=== PATIENT | female | born 1950 | race Caucasian/White ===

== ENCOUNTER 2020-11-03 07:34 | Day surgery (SDC) | payer MEDICARE, OTHER, SELFPAY ==
[2020-10-30 13:19] VITALS: BMI 34.0
--- NOTE | 2020-11-02 12:05 | HO.ANESPROP2 ---
HPI - Anesthesia Eval Consult details Narrative: 70yo F for Upper Endoscopy s/p cervical discectomy and fusion PMFSH Past Medical History Medical History (Updated 10/30/20 @ 12:45 by Jenn Sylvester) Back pain GERD (gastroesophageal reflux disease) History of Rowe's esophagus History of fibromyalgia Seasonal allergies Surgical History Surgical History History of bursectomy History of esophagogastroduodenoscopy (EGD) History of fusion of cervical spine History of fusion of lumbar spine History of repair of hiatal hernia History of total right hip replacement Hx of cervical discectomy Hx of colonoscopy Social History Social History Patient Tobacco Use Status: Never used Tobacco Are you DNR?: No Advance Directives: No Advance Directives Information Provided: No Advance Directives on File: No Meds Allergies Allergy/AdvReac Type Severity Reaction Status Date / Time codeine Allergy Dizziness, Verified 10/30/20 13:18 Nausea Penicillins Allergy Rash Verified 10/30/20 13:18 Sulfa (Sulfonamide Allergy Dizziness Verified 10/30/20 13:18 Antibiotics) wheat Allergy Gastrointestinal Verified 10/30/20 13:18 Upset jalapeno Allergy Anaphylaxis Uncoded 10/30/20 13:18 Home Medications Medication Instructions Recorded Confirmed Last Taken Type Lyrica PO BID 10/30/20 11/03/20 06:30 History citalopram 20 mg PO DAILY 10/30/20 10/30/20 11/03/20 06:30 History famotidine 40 mg PO BEDTIME 10/30/20 10/30/20 Unknown History hyoscyamine sulfate 0.125 mg PO TID PRN 10/30/20 10/30/20 Unknown History pantoprazole 40 mg PO BID 10/30/20 10/30/20 11/03/20 06:30 History tramadol 50 mg PO BID PRN 10/30/20 10/30/20 Unknown History trazodone 100 mg PO BEDTIME 10/30/20 10/30/20 Unknown History Exam Exam Date and Time: November 02, 2020 1205 Height,Weight and Vital Signs: Height 5 ft 4 in Weight 89.811 kg Assessment and Plan Assessment Anesthesia Assessment: Chart Reviewed
[2020-11-03 07:51] VITALS: BP 145/71; PULSE 76; RESP 16; TEMP 35.8; O2SAT 97
[2020-11-03] MEDS: Lactated Ringers 1,000 ML 100 ML IVCONT (08:18)
--- NOTE | 2020-11-03 08:46 | MHC.SHP ---
Pre-Procedural Eval Section A Date of Service: 11/03/20 The patient is an INPATIENT: No Changes since office visit: No Cold of Flu in the past 2 weeks, No New Medical Problems, No Changes in Medication and No Patient answered all questions The History & Physical has been completed within 30 days and I have reviewed it.: Yes Section B Chief Complaint: conroy's,reflux disease Allergies: Allergies Allergy/AdvReac Type Severity Reaction Status Date / Time codeine Allergy Dizziness, Verified 10/30/20 13:18 Nausea Penicillins Allergy Rash Verified 10/30/20 13:18 Sulfa (Sulfonamide Allergy Dizziness Verified 10/30/20 13:18 Antibiotics) wheat Allergy Gastrointestinal Verified 10/30/20 13:18 Upset jalapeno Allergy Anaphylaxis Uncoded 10/30/20 13:18 Plan I have reviewed the history and physical and performed a pertinent physical examination on my patient. No changes have occurred unless specified.
--- NOTE | 2020-11-03 09:03 | P.BOP_ITS ---
Brief Operative Note Date of Service: 11/03/20 Pre-op diagnosis: barretts Post-op diagnosis: same Procedure: egd Surgeon: Charli Greenberg Anesthesia: MAC Was an Felt Finishing Supervisor used for this Procedure?: No Estimated blood loss (mL): 2 Pathology: other (antral biopsies,egj biopsies) Condition: stable Disposition: PACU
[2020-11-03 09:04] VITALS: BP 133/69; PULSE 75; RESP 16; TEMP 36.6; O2SAT 94
--- NOTE | 2020-11-03 09:07 | HO.ANESPROP2 ---
[facility] Past Medical History Medical History (Updated 10/30/20 @ 12:45 by Jenn Sylvester) Back pain GERD (gastroesophageal reflux disease) History of Rowe's esophagus History of fibromyalgia Seasonal allergies Surgical History Surgical History History of bursectomy History of esophagogastroduodenoscopy (EGD) History of fusion of cervical spine History of fusion of lumbar spine History of repair of hiatal hernia History of total right hip replacement Hx of cervical discectomy Hx of colonoscopy Social History Social History Patient Tobacco Use Status: Never used Tobacco Are you DNR?: No Advance Directives: No Advance Directives Information Provided: No Advance Directives on File: No Meds Allergies Allergy/AdvReac Type Severity Reaction Status Date / Time codeine Allergy Dizziness, Verified 10/30/20 13:18 Nausea Penicillins Allergy Rash Verified 10/30/20 13:18 Sulfa (Sulfonamide Allergy Dizziness Verified 10/30/20 13:18 Antibiotics) wheat Allergy Gastrointestinal Verified 10/30/20 13:18 Upset jalapeno Allergy Anaphylaxis Uncoded 10/30/20 13:18 Active Medications: Current Medications Generic Name Dose Route Start Last Admin Trade Name Freq PRN Reason Stop Dose Admin Lactated Ringer's 1,000 mls @ 100 mls/hr 11/03/20 06:30 11/03/20 08:18 Lr IVCONT 100 mls/hr .Q10H TY Administration Home Medications Medication Instructions Recorded Confirmed Last Taken Type Lyrica PO BID 10/30/20 11/03/20 06:30 History citalopram 20 mg PO DAILY 10/30/20 10/30/20 11/03/20 06:30 History famotidine 40 mg PO BEDTIME 10/30/20 10/30/20 Unknown History hyoscyamine sulfate 0.125 mg PO TID PRN 10/30/20 10/30/20 Unknown History pantoprazole 40 mg PO BID 10/30/20 10/30/20 11/03/20 06:30 History tramadol 50 mg PO BID PRN 10/30/20 10/30/20 Unknown History trazodone 100 mg PO BEDTIME 10/30/20 10/30/20 Unknown History Exam Exam Date and Time: November 03, 2020 0907 Height,Weight and Vital Signs: Height 5 ft 4 in Weight 89.811 kg Last Vital Signs Temp 96.5 F L 11/03/20 07:51 Pulse 76 11/03/20 07:51 Resp 16 11/03/20 07:51 BP 145/71 H 11/03/20 07:51 Pulse Ox 97 11/03/20 07:51 Airway Mallampati Class: III TM Dist: >3cm Neck ROM: Full Heart: RRR Lungs: CTA
--- NOTE | 2020-11-03 09:14 | OP_ITS ---
SURGEON: Charli Greenberg MD INDICATIONS: Rowe's esophagus. PREOPERATIVE DIAGNOSIS: POSTOPERATIVE DIAGNOSIS: PROCEDURE PERFORMED: Upper endoscopy with biopsy. ESTIMATED BLOOD LOSS: COMPLICATIONS: ANESTHESIA: Monitored anesthesia care. ASSISTANTS: SPECIMENS: DESCRIPTION OF PROCEDURE: History and physical performed. The risks and benefits of the procedure were explained to the patient, and informed consent was obtained. The patient was placed in left lateral decubitus position. The Olympus video gastroscope was introduced into the esophagus, stomach, and duodenum. Examination was performed. The scope was removed. She tolerated the procedure well and she was taken to the recovery area in stable condition. FINDINGS: Esophagus: The esophagus was normal. The EG junction was slightly irregular. There was no esophagitis. Biopsies were obtained at the EG junction. There was a 2 to 3 cm hiatal hernia. STOMACH: The stomach showed no evidence of masses or ulcers. There was mild antral and body erythema consistent with gastritis. Biopsies were obtained from the antrum. DUODENUM: The bulb and second portion were normal. IMPRESSION: 1. Rowe's esophagus. 2. Hiatal hernia. 3. Mild gastritis. RECOMMENDATIONS: Follow up the biopsy results. MD CEDRICK Bishop/ASHLEY / [id number]
[2020-11-03 09:19] VITALS: BP 139/76; PULSE 66; RESP 18; O2SAT 99
== END 2020-11-03 09:51 | disposition home or self-care (01) ==
PROVIDERS: PCP Internal Medicine; Visit Provider Internal Medicine Gastroenterology
PROC: 0DJ08ZZ Inspection of Upper Intestinal Tract, Via Natural or Artificial Opening Endoscopic (ICD-10-PCS; CPT 43235; principal; 2020-11-03 08:50)
DX: K22.70 Barrett's esophagus without dysplasia (principal); K21.9 Gastro-esophageal reflux disease without esophagitis; K29.50 Unspecified chronic gastritis without bleeding; K44.9 Diaphragmatic hernia without obstruction or gangrene; J30.2 Other seasonal allergic rhinitis; Z96.641 Presence of right artificial hip joint; Z98.1 Arthrodesis status; Z79.899 Other long term (current) drug therapy; Z88.0 Allergy status to penicillin; Z88.2 Allergy status to sulfonamides
CPT/HCPCS: 43239; 88305; 88342

== ENCOUNTER 2022-10-14 10:09 | Outpatient (REF) | payer MEDICARE, OTHER, SELFPAY ==
--- NOTE | ~2022-10-14 | FL_ITS ---
EXAMINATION: XR GI SERIES CLINICAL INFORMATION: Gastroesophageal reflux disease COMPARISON: None available. TECHNIQUE: Single contrast upper GI was performed with Gastrografin FINDINGS: There is surgical hardware in the cervical spine. No aspiration, penetration or retention is seen with liquid barium. There is a small hiatal hernia. Esophageal motility is normal. No mass, stricture or evidence of esophagitis. No significant gastroesophageal reflux appreciated. FLUOROSCOPY TIME: 0.9 minutes DOSE AREA PRODUCT: 8 Gomez per centimeter squared. Total dose 35 mgy. 44 saved fluoroscopic images. FL/FL upper GI series IMPRESSION: Small hiatal hernia. No gastroesophageal reflux appreciated.
[2022-10-14] MEDS: Diatrizoate Meglumine, Sodium 120 ML SOLUTION PO (10:58)
== END 2022-10-14 10:10 | disposition home or self-care (01) ==
LOC: HO.XRAY 10:09
PROVIDERS: PCP Internal Medicine; Visit Provider Internal Medicine Gastroenterology
DX: R13.10 Dysphagia, unspecified (principal); K21.9 Gastro-esophageal reflux disease without esophagitis; K22.70 Barrett's esophagus without dysplasia
CPT/HCPCS: 74240

== ENCOUNTER 2022-12-02 08:23 | Outpatient (REF) | payer MEDICARE, OTHER, SELFPAY ==
--- NOTE | ~2022-12-02 | US_ITS ---
EXAMINATION: US ABDOMEN COMPLETE CLINICAL INFORMATION: Right upper quadrant pain. COMPARISON: None available. TECHNIQUE: Real-time imaging of the abdominal viscera. FINDINGS: PANCREAS: Normal. ABDOMINAL AORTA: The proximal, mid, and distal segments are normal in caliber. INFERIOR VENA CAVA: Visualized portions are normal. LIVER: The liver is normal in size. The liver contour is normal. There is diffuse increased liver echogenicity. No focal hepatic lesion. There is no intrahepatic biliary duct dilatation seen. GALLBLADDER: The gallbladder wall thickness is 0.2 cm. The gallbladder is physiologically distended without evidence of stones, sludge, polyps, wall thickening or pericholecystic fluid. COMMON BILE DUCT: Normal in caliber measuring 0.3 cm in diameter. RIGHT KIDNEY: Normal. No hydronephrosis. No renal calculi or focal parenchymal lesions. The kidney measures 12.1 cm in maximum dimension. LEFT KIDNEY: Normal. No hydronephrosis. No renal calculi or focal parenchymal lesions. The kidney measures 11.0 cm in maximum dimension. SPLEEN: Normal. The spleen measures 9.2 cm in maximum dimension. FREE FLUID: None. US/US abdomen complete IMPRESSION: 1. Diffuse liver echogenicity without any focal lesion. 2. The rest of the abdominal ultrasound is unremarkable.
== END 2022-12-02 08:24 | disposition home or self-care (01) ==
LOC: HO.US 08:23
PROVIDERS: PCP Internal Medicine; Visit Provider Internal Medicine Gastroenterology
DX: R10.11 Right upper quadrant pain (principal)
CPT/HCPCS: 76700

== ENCOUNTER 2023-02-05 10:18 | Outpatient (REF) | payer MEDICARE, OTHER, SELFPAY | END 2023-02-05 10:19 | disposition home or self-care (01) | LOC: HO.10HDL 10:18 | PROVIDERS: Visit Provider Internal Medicine Gastroenterology | DX: R19.8 Other specified symptoms and signs involving the digestive system and abdomen (principal) | CPT/HCPCS: 36415; 84443 ==

== ENCOUNTER 2023-02-07 12:24 | Outpatient (REF) | payer MEDICARE, OTHER, SELFPAY | END 2023-02-07 12:25 | disposition home or self-care (01) | LOC: HO.LNP 12:24 | PROVIDERS: Visit Provider Internal Medicine Gastroenterology | DX: R19.8 Other specified symptoms and signs involving the digestive system and abdomen (principal) | CPT/HCPCS: 87177; 87209; 87507; 89055 ==

== ENCOUNTER 2023-10-07 12:33 | Day surgery (SDC) | payer MEDICARE, OTHER, SELFPAY ==
[2023-10-07 12:37] VITALS: BMI 33.5
[2023-10-07 13:04] VITALS: BP 147/71; PULSE 75; RESP 16; TEMP 36.1; O2SAT 98
--- NOTE | 2023-10-07 13:18 | HO.ANESPROP2 ---
HPI - Anesthesia Eval Consult details Narrative: for EGD and colonoscopy [facility] Past Medical History Medical History History of fibromyalgia GERD (gastroesophageal reflux disease) Seasonal allergies Back pain History of Rowe's esophagus Family History Family history of problems with anesthesia: No Surgical History Surgical History History of bursectomy History of esophagogastroduodenoscopy (EGD) History of fusion of cervical spine History of fusion of lumbar spine History of repair of hiatal hernia History of total right hip replacement Hx of cervical discectomy Hx of colonoscopy History of Problems with Anesthesia: No Social History Social History Patient Tobacco Use Status: Never used Tobacco Meds Allergies Allergy/AdvReac Type Severity Reaction Status Date / Time codeine Allergy Dizziness, Verified 10/07/23 12:44 Nausea Penicillins Allergy Rash Verified 10/07/23 12:44 Sulfa (Sulfonamide Allergy Dizziness Verified 10/07/23 12:44 Antibiotics) wheat Allergy Gastrointestinal Verified 10/07/23 12:44 Upset jalapeno Allergy Anaphylaxis Uncoded 10/07/23 12:44 Home Medications ?Medication ?Instructions ?Recorded ?Confirmed ?Last Taken ?Type Lyrica PO BID 10/30/20 11/03/20 06:30 History citalopram 20 mg tablet 20 mg PO DAILY 10/30/20 10/07/23 10/06/23 History famotidine 40 mg tablet 40 mg PO BEDTIME 10/30/20 10/07/23 10/06/23 History hyoscyamine sulfate 0.125 mg 0.125 mg PO TID PRN Spasms 10/30/20 10/30/20 Unknown History sublingual tablet pantoprazole 40 mg tablet,delayed 40 mg PO BID 10/30/20 10/07/23 10/06/23 History release tramadol 50 mg tablet 50 mg PO BID PRN Pain 10/30/20 10/30/20 Unknown History trazodone 100 mg tablet 100 mg PO BEDTIME 10/30/20 10/07/23 10/06/23 History Exam Height,Weight and Vital Signs: Height 5 ft 4.5 in Weight 89.811 kg Last Vital Signs Temp 97.0 F 10/07/23 13:04 Pulse 75 10/07/23 13:04 Resp 16 10/07/23 13:04 BP 147/71 H 10/07/23 13:04 Pulse Ox 98 10/07/23 13:04 O2 Del Method Room Air 10/07/23 13:04 Airway Mallampati Class: II TM Dist: <=3cm Neck ROM: Full Loose/Missing/Broken Teeth: No Heart: ok Lungs: ok. Chronic cough due to Rowe's. Assessment and Plan Assessment Anesthesia Assessment: Anesthesia Plan Discussed and Chart Reviewed Final Anesthetic Review Family History of Problems with Anesthesia: No History of Problems with Anesthesia: No NPO: Yes ASA Class: III Final Preanesthetic Review: No Changes in Pt Med Stat, Meds/Allgs Chart Reviewed, Consent Obtained/Reviewed and Anes Risks/Benef Reviewed Patient Risk: Intermediate Procedure Risk: Intermediate Anesthetic Plan Anesthetic Plan: Agree w/ Assess. and Plan and TIVA Disposition: Standard PACU
[2023-10-07] MEDS: Lactated Ringers 1,000 ML 80 ML IVCONT (13:21)
--- NOTE | 2023-10-07 13:22 | P.HPSUR_ITS ---
Pre-Procedural Eval Section A - 24 Hr Update-Section A only Date of Service: 10/07/23 Section B - Complete if H&P > 30 days Chief Complaint: Rowe's esophagus without dysplasia Details of Present Illness: see H&P no changes Relevant Family History (Specify if Yes): No Relevant Social History: None Present Medications: see Short Stay Collaborative assessment Medical History: No relevant PMH History of Previous Operations: No relevant previous surgery Allergies: Allergies Allergy/AdvReac Type Severity Reaction Status Date / Time codeine Allergy Dizziness, Verified 10/07/23 12:44 Nausea Penicillins Allergy Rash Verified 10/07/23 12:44 Sulfa (Sulfonamide Allergy Dizziness Verified 10/07/23 12:44 Antibiotics) wheat Allergy Gastrointestinal Verified 10/07/23 12:44 Upset jalapeno Allergy Anaphylaxis Uncoded 10/07/23 12:44 Review of Systems Sugical H&P ROS: Negative: Constitution, Cardiovascular, Respiratory, Neurological, Psychiatric, Hem-Onc, Allergic/Immunologic, Gastrointestinal, Genitourinary, Musculoskeletal, Integumentary, Endocrine and Eyes/Ears/Nose/Throat Exam Surgical H&P Exam: Normal: HEENT, Normal: Heart, Normal: Lungs, Normal: Extr emities, Normal: Abdomen, Normal: Skin and Normal: Neurological Plan Diagnosis/Plan: Unchanged I have reviewed the history and physical and performed a pertinent physical examination on my patient. No changes have occurred unless specified. Time Spent With Patient Time: Total time managing care of this patient today ____ minutes.
[2023-10-07 14:28] VITALS: BP 112/53; PULSE 62; RESP 18; TEMP 36.1; O2SAT 100
[2023-10-07 14:43] VITALS: BP 107/62; PULSE 61; RESP 18; TEMP 36.1; O2SAT 100
--- NOTE | 2023-10-07 15:41 | OP_ITS ---
DATE OF SERVICE: 10/07/2023 SURGEON: Charli Greenberg MD INDICATIONS: 1. Rowe esophagus. 2. Change in bowel habits. PREOPERATIVE DIAGNOSIS: POSTOPERATIVE DIAGNOSIS: PROCEDURE PERFORMED: Upper endoscopy with biopsy, colonoscopy to the terminal ileum with biopsy and snare polypectomy. ESTIMATED BLOOD LOSS: COMPLICATIONS: ANESTHESIA: Monitored anesthesia care. ASSISTANTS: SPECIMENS: DESCRIPTION OF PROCEDURE: A history and physical was performed. The risks and benefits of the procedure were explained to the patient and informed consent was obtained. The patient was placed in the left lateral decubitus position. The Olympus video gastroscope was introduced into the esophagus, stomach, and duodenum. Examination was performed and the scope was removed. She was repositioned for colonoscopy. A digital rectal exam was performed and was found to be normal. The Olympus pediatric video colonoscope was introduced into the rectum and advanced to the cecum. The cecum was identified by transillumination, palpation, and identification of ileocecal valve. Examination was performed and the scope was removed. She tolerated the procedure well and was returned to the recovery area in stable condition. FINDINGS: Upper endoscopy, esophagus: The esophagus was normal. No stricture was identified. The EG junction was located at approximately 35 cm and there were no raised lesions or ulcerated areas. Biopsies were obtained from the EG junction. There was a 3 cm hiatal hernia. Stomach: The stomach showed no evidence of masses, ulcers, or polyps. Duodenum: The bulb and 2nd portion were normal. Colonoscopy: The terminal ileum was examined and appeared normal. The visualized colonic mucosa was normal. There was some stool coating the mucosa, which was mostly liquid. It was washed and suctioned. There was mild sigmoid diverticulosis. Retroflexed examination showed moderate-sized internal hemorrhoids. A small polyp was located at 35 cm and removed with a cold snare. The polyp measured approximately 6 mm. The polyp was recovered via suction. A biopsy forceps was used to obtain random biopsies from the sigmoid to rule out microscopic or collagenous colitis. The mucosa did not show any endoscopic signs of colitis. IMPRESSION: 1. Rowe esophagus. 2. Hiatal hernia. 3. Colon polyp. RECOMMENDATION: Follow up the biopsy results. MD CEDRICK Bishop/ASHLEY / [id number]
== END 2023-10-07 15:33 | disposition home or self-care (01) ==
PROVIDERS: PCP Family Medicine; Visit Provider Internal Medicine Gastroenterology
PROC: (CPT 45380; principal; 2023-10-07 14:10)
DX: R19.4 Change in bowel habit (principal); K57.30 Diverticulosis of large intestine without perforation or abscess without bleeding; D12.6 Benign neoplasm of colon, unspecified; K22.70 Barrett's esophagus without dysplasia; K44.9 Diaphragmatic hernia without obstruction or gangrene; Z88.0 Allergy status to penicillin; Z88.2 Allergy status to sulfonamides; Z88.5 Allergy status to narcotic agent
CPT/HCPCS: 45380; 43239; 88305; 88313; J2704; J3010

== ENCOUNTER 2024-01-09 10:26 | Outpatient (REF) | payer MEDICARE, OTHER, SELFPAY | END 2024-01-09 10:27 | disposition home or self-care (01) | LOC: HO.HOSX 10:26 | PROVIDERS: PCP Family Medicine; Visit Provider Physician Assistant | DX: Z13.89 Encounter for screening for other disorder (principal) | CPT/HCPCS: 99202 ==

== ENCOUNTER 2024-01-09 10:26 | Outpatient (AMB) | payer MEDICARE, OTHER, SELFPAY ==
--- NOTE | 2024-01-09 10:44 | HO.SPINEOV ---
Intake Visit Reasons: low back pain Intake Note: Ms. Dumas is here today c/o low back pain. Clerk Travel Reservations Required: No Allergies codeine Allergy (Verified 01/09/24 10:49) Dizziness, Nausea Penicillins Allergy (Verified 01/09/24 10:49) Rash Sulfa (Sulfonamide Antibiotics) Allergy (Verified 01/09/24 10:49) Dizziness wheat Allergy (Verified 01/09/24 10:49) Gastrointestinal Upset jalapeno Allergy (Uncoded 10/07/23 12:44) Anaphylaxis Assessment & Plan Assessment & Plan (1) Compression fracture of L1 lumbar vertebra: Code(s): S32.010A - Wedge compression fracture of first lumbar vertebra, initial encounter for closed fracture Category: Medical (2) Failed back syndrome: Code(s): M96.1 - Postlaminectomy syndrome, not elsewhere classified Category: Medical Plan Mrs Dumas is a very nice 73-year-old female who comes in today for 2nd opinion about her lumbar spine. She has 2 issues to address today. The 1st is that she had an L4-5 posterior lumbar interbody fusion done by Dr. Luis morris in 2020 for what sounds like degenerative disc disease and low back pain. Unfortunately after the surgery she had no relief from the symptoms. She saw him in follow-up numerous times. X-rays, CT scans were done and was told that everything was okay from the standpoint of the surgery. It sounds like there was limited input from his office as to what to do next. She did undergo a series of injections, client care consultant and physical therapy but again nothing seemed to help. She is here today for an evaluation her postsurgical status from the lumbar fusion. A secondary issue, is that she has a recent fall just about 2 weeks ago where she tripped over a cord in fell. She had an MRI pending, and a few days later underwent that MRI and it showed an L1 fracture. She has not developed any acute lower extremity symptoms are cauda equina symptoms related to this. The pain that she initially felt when she fell seems to be slightly better. She bought herself a brace and has been using it to get around. She has been taking tramadol and Tylenol to help with the pain. PMH: History of fibromyalgia, Rowe's esophagitis, chronic cough, L4-5 posterior lumbar interbody fusion, anterior cervical fusion C3-4 and C6-7, right hip replacement. Social hx: She does not smoke, drink use any recreational drugs Medications: Trazodone, Lyrica, pantoprazole, citalopram, ropinirole, semaglutide, tramadol Allergies: Please see the [facility] list Physical exam: She is awake alert oriented no acute distress, she is slow to stand up she has wearing an LSO brace. She has some limitations with flexion of her right hip secondary to hip replacement but no focal weakness. Reflexes are normal. Imaging review: She has a lumbar MRI done at [place] in December 2023 showing postsurgical changes at L4-5. There is some mild degenerative disc disease above. There suggests that there may be a synovial cyst on the left but it is not causing any significant compression of the nerves. Other than that there are some other mild to moderate degenerative changes in her lumbar spine but nothing significant. There is hyperintensity seen in the bone of L1 with some concavity of the endplate suggesting she has a compression fracture that is acute. There is no retropulsion into the canal. Impression: 73-year-old female who underwent a posterior lumbar interbody fusion at [facility] and sounds like she has a failed back syndrome. It is well known that lumbar fusion for degenerative disc disease has about a 60-70% success rate with lumbar fusion and unfortunately I think the patient is falling into that 30-40% of people who the surgery does not help. I do not see anything wrong with this surgical site on the most recent MRI. I went back and looked at a CT scan that she had done at [facility] a few years ago and it looks like there is some degree of posterolateral fusion taking place. At this point I do not see anything to indicate that there is a problem with the surgery itself. I am going to send her for standing flexion-extension x-rays to rule out any occult instability around the surgical site. I agree with Dr. Smith that there is likely nothing to do further from a surgical standpoint for her chronic back pain. The rest of her MRI does not show anything profound that was suggest she needs an operation at another disk either. With regard to the acute issue with the L1 fracture. I suspect it is a compression fracture but would like to evaluate with a standing flexion-extension x-rays to rule out that she does not have a burst fracture, or some degree of instability there. I will call her if I see something on this x-ray that I do not like or the suggests that she needs to have a more extensive workup with a CT. If it does appear to be a compression fracture, typically these will heal on their own with time. If the pain persists we could consider a kyphoplasty. Thank you for allowing us to care for your patient. The total time spent with this visit with this patient was 45 minutes reviewing history, physical exam, lumbar imaging review, and implementation of treatment plan or further diagnostic testing Hari Del Rio MD,PhD [facility] Orders: Orders XR lumbar spine 4V min Today S32.010A - Wedge compression fracture of first lumbar vertebra, initial encounter for closed fracture Coding Level of Care Code New Pt Level 4 (04316) Diagnoses Compression fracture of L1 lumbar vertebra S32.010A Failed back syndrome M96.1
== END 2024-01-09 11:40 | disposition home or self-care (01) ==
PROVIDERS: PCP Family Medicine; Visit Provider Physician Assistant
DX: S32.010A Wedge compression fracture of first lumbar vertebra, initial encounter for closed fracture (principal); M96.1 Postlaminectomy syndrome, not elsewhere classified
CPT/HCPCS: 99204

== ENCOUNTER 2024-01-09 11:55 | Outpatient (REF) | payer MEDICARE, OTHER, SELFPAY ==
--- NOTE | ~2024-01-09 | XR_ITS ---
EXAMINATION: XR LUMBOSACRAL SPINE CLINICAL INFORMATION: Wedge compression fracture first lumbar vertebra. COMPARISON: CT lumbar spine 10/17/2021. TECHNIQUE: 3 views of the lumbosacral spine. FINDINGS: Levoscoliosis of the lumbar spine. Right total hip prosthesis minimally imaged. Posterior instrumented fusion with bilateral rods and pedicular screws as well as disc device at L4-L5. Hardware appears intact. Multilevel lumbar spondylosis with loss of disc space height at L3-L4 and L5-S1 Grade 1 anterolisthesis of L4 on L5. Minimal grade 1 anterolisthesis of L5 on S1. XR/XR lumbar spine 2-3V IMPRESSION: 1. Posterior instrumented fusion at L4-L5. Hardware appears intact. 2. Multilevel lumbar spondylosis with loss of disc space height at L3-L4 and L5-S1. Electronically signed by: Sheree Martinez MD 01/14/2024 10:02 AM EDT
--- NOTE | ~2024-01-09 | XR_ITS ---
EXAMINATION: XR SHOULDER, LEFT CLINICAL INFORMATION: Pain. COMPARISON: None available. TECHNIQUE: 3 views of the left shoulder. FINDINGS: Osteoarthritic changes in the acromioclavicular joint. Moderate degenerative changes in the glenohumeral joint. Diffuse demineralization. Incompletely imaged hardware overlies partially imaged upper spine. Deformity of humeral head with focal concavity and irregularity with subchondral sclerosis along the superolateral aspect of the humeral head, possibly related to prior trauma of indeterminate age. Correlation with clinical exam and history recommended to determine further management. Small calcification just superior to the lateral shaft of the clavicle. XR/XR shoulder LT min 2V IMPRESSION: Deformity of humeral head with focal concavity and irregularity with subchondral sclerosis along the superolateral aspect of the humeral head, possibly related to prior trauma of indeterminate age. Correlation with clinical exam and history recommended to determine further management. Electronically signed by: Sheree Martinez MD 01/14/2024 10:12 AM EDT
== END 2024-01-09 11:56 | disposition home or self-care (01) ==
LOC: HO.XRAY 11:55
PROVIDERS: Absent Provider Physician Assistant; PCP Family Medicine; Visit Provider Chiropractor
DX: M25.512 Pain in left shoulder (principal); S32.010D Wedge compression fracture of first lumbar vertebra, subsequent encounter for fracture with routine healing
CPT/HCPCS: 72100; 72110; 73030; 99202

== ENCOUNTER 2024-01-30 09:57 | Outpatient (AMB) | payer MEDICARE, OTHER, SELFPAY ==
--- NOTE | 2024-01-30 10:01 | A.SPINEOV_ITS ---
Intake Visit Reasons: f/up from [facility] Intake Note: Ms. Dumas is here today for a F/u. 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 Allergies codeine Allergy (Verified 01/30/24 10:06) Dizziness, Nausea Penicillins Allergy (Verified 01/30/24 10:06) Rash Sulfa (Sulfonamide Antibiotics) Allergy (Verified 01/30/24 10:06) Dizziness wheat Allergy (Verified 01/30/24 10:06) Gastrointestinal Upset jalapeno Allergy (Uncoded 10/07/23 12:44) Anaphylaxis Assessment & Plan Assessment & Plan (1) Compression fracture of L1 lumbar vertebra: Code(s): S32.010A - Wedge compression fracture of first lumbar vertebra, initial encounter for closed fracture Category: Medical Plan Dear colleague, On January 30, 2024, I saw for follow-up Frances Dumas. She suffered from a mild L1 compression fracture. The pain is improving. She takes tramadol now and then. She has more good days and bad days. I told the patient that the fracture will heal in her symptoms should further subside in the next 2 months. She will return to my office if the pain persists. I spent 15 minutes in his consult Zac Del Rio MD, PhD Spine Fellowship Trained Neurosurgeon Director, [facility] Coding Level of Care Code Est Pt Level 2 (47668) Diagnoses Compression fracture of L1 lumbar vertebra S32.010A
== END 2024-01-30 11:08 | disposition home or self-care (01) ==
PROVIDERS: PCP Family Medicine; Visit Provider Neurological Surgery
DX: S32.010A Wedge compression fracture of first lumbar vertebra, initial encounter for closed fracture (principal)
CPT/HCPCS: 99212

== ENCOUNTER → 2024-01-30 09:57 | Outpatient (BNVA) | payer MEDICARE, OTHER, SELFPAY | PROVIDERS: PCP Family Medicine; Visit Provider Neurological Surgery | DX: S32.010D Wedge compression fracture of first lumbar vertebra, subsequent encounter for fracture with routine healing (principal) | CPT/HCPCS: 99212 ==